=== PATIENT | male | born 1970 | race Caucasian/White ===

== ENCOUNTER 2022-02-10 20:55 | Inpatient (IN) | payer BC ==
[~2022-02-10] VITALS: Ht 180.3 cm; Wt 104.2 kg
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
[2022-02-11] MEDS ORDERED: magnesium hydroxide 30ml (MOM) UD suspension PO PRN (12:35)
[2022-02-11] MEDS ORDERED: acetaminophen 325mg tablet PO PRN ×2 (12:35)
[2022-02-11] MEDS ORDERED: NICOTINE POLACRILEX 2 MG LOZENGE BC PRN (12:35)
[2022-02-11] MEDS ORDERED: loperamide 2mg capsule PO PRN (12:35)
[2022-02-11] MEDS ORDERED: mag hydrox/Alum hydrox/simeth 30ml oral suspension PO PRN (12:35)
[2022-02-11] MEDS ORDERED: CEPH250T PO (12:42)
[2022-02-11 12:59] VITALS: BP 141/95
[2022-02-11] MEDS ORDERED: CEPHALEXIN MONOHYDRATE PO SCH (13:00)
[2022-02-11] MEDS ORDERED: LORazepam 1 MG tablet PO PRN (16:15)
[2022-02-11] MEDS: cephalexin 250mg capsule PO SCH ×2 (17:28→21:08)
[2022-02-11 20:00] VITALS: BP 122/73
[2022-02-11] MEDS: traZODone 50mg tablet PO PRN (21:09)
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
[2022-02-12 07:19] VITALS: BP 146/87
[2022-02-12 07:58] LABS: CHOL/HDL RATIO 4.9 (0.00-4.99); CHOLESTEROL 196 MG/DL (0-200); HDL CHOLESTEROL 40 MG/DL (35-60); LDL CHOLESTEROL 132 MG/DL (50-100); TRIGLYCERIDES 118 MG/DL (20-135)
[2022-02-12] MEDS: atorvastatin 10mg tablet PO SCH (08:00)
[2022-02-12] MEDS: cephalexin 250mg capsule PO SCH ×4 (08:55→21:18)
[2022-02-12] MEDS: nicotine 21mg patch - 24 hr TD SCH (08:58)
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
[2022-02-12] MEDS: traZODone 50mg tablet PO PRN (21:18)
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
[2022-02-13 07:21] VITALS: BP 132/85
[2022-02-13] MEDS: atorvastatin 10mg tablet PO SCH (08:38)
[2022-02-13] MEDS: cephalexin 250mg capsule PO SCH ×4 (08:38→21:11)
[2022-02-13] MEDS: nicotine 21mg patch - 24 hr TD SCH (08:38)
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
[2022-02-13] MEDS: lurasidone 20mg tablet PO SCH (18:14)
--- NOTE | 2022-02-13 18:20 | NUR ---
Pt. took his Latuda without issue but afterwards, stated, "I hope this medication works, but you know, I just hope someone will believe me some day about weaponized neuroscience, it is a real thing and it's dangerous."
[2022-02-13 19:00] VITALS: BP 119/86
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
[2022-02-14] MEDS ORDERED: lurasidone 20mg tablet PO SCH (07:30)
[2022-02-14] MEDS: nicotine 21mg patch - 24 hr TD SCH (07:54)
[2022-02-14] MEDS: atorvastatin 10mg tablet PO SCH (07:54)
[2022-02-14] MEDS: cephalexin 250mg capsule PO SCH ×4 (07:55→21:04)
[2022-02-14 08:00] VITALS: BP 137/78
[2022-02-14] MEDS: lurasidone 20mg tablet PO SCH (17:54)
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
[2022-02-14 19:00] VITALS: BP 122/89
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
[2022-02-15] MEDS: cephalexin 250mg capsule PO SCH ×4 (07:17→21:15)
[2022-02-15] MEDS: atorvastatin 10mg tablet PO SCH (07:17)
[2022-02-15] MEDS: nicotine 21mg patch - 24 hr TD SCH (07:17)
[2022-02-15 08:00] VITALS: BP 142/84
[2022-02-15] MEDS: lurasidone 20mg tablet PO SCH (17:17)
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
[2022-02-15 19:00] VITALS: BP 132/86
[2022-02-15] MEDS: traZODone 50mg tablet PO PRN (21:15)
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
[2022-02-16 07:00] VITALS: BP 118/99
[2022-02-16] MEDS ORDERED: nicotine 14mg patch - 24hr TD SCH (08:00)
[2022-02-16] MEDS: atorvastatin 10mg tablet PO SCH (08:14)
[2022-02-16] MEDS: cephalexin 250mg capsule PO SCH ×3 (08:15→17:28)
[2022-02-16] MEDS ORDERED: LURA40TA2 PO (16:29)
[2022-02-16] MEDS ORDERED: NICO-631 TD (16:29)
[2022-02-16] MEDS ORDERED: ATOR10TA PO (16:29)
[2022-02-16] MEDS ORDERED: TRAZ-251 PO (16:29)
--- NOTE | 2022-02-16 17:20 | NUR ---
DISCHARGE NOTE: Patient denies SI and is anxious to leave and see his family. Patient reportedly is staying the night in [facility], before he goes back home. Evening medications administered. Patient is discharged with all belongings in stable condition.
[2022-02-16] MEDS: lurasidone 20mg tablet PO SCH (17:27)
== END 2022-02-16 17:20 | disposition home or self-care (01) | DRG 885 ==
LOC: ADULT MH 02-11 12:25
PROVIDERS: ADMIT Psychiatry & Neurology Psychiatry; ATTEND Psychiatry & Neurology Psychiatry
DX: F22 Delusional disorders (principal); R45.851 Suicidal ideations; L03.113 Cellulitis of right upper limb; E78.5 Hyperlipidemia, unspecified; F12.90 Cannabis use, unspecified, uncomplicated; F32.A Depression, unspecified; E78.00 Pure hypercholesterolemia, unspecified; E66.3 Overweight; R19.7 Diarrhea, unspecified; F17.210 Nicotine dependence, cigarettes, uncomplicated; Z81.8 Family history of other mental and behavioral disorders; Z56.0 Unemployment, unspecified; Z79.899 Other long term (current) drug therapy; Z68.32 Body mass index [BMI] 32.0-32.9, adult
CPT/HCPCS: 36415; 80061; 87081